=== PATIENT | female | born 1995 | race African-American/Black ===

== ENCOUNTER 2020-03-02 21:22 | Emergency (ER) | payer OTHER ==
[~2020-03-02] VITALS: Ht 160 cm; Wt 82.0 kg
[2020-03-02 21:33] VITALS: BP 111/75
== END 2020-03-02 23:25 | disposition home or self-care (01) ==
LOC: ER 21:22
DX: O26.891 Other specified pregnancy related conditions, first trimester (principal); Z3A.00 Weeks of gestation of pregnancy not specified; Z98.890 Other specified postprocedural states; R07.89 Other chest pain; Z88.1 Allergy status to other antibiotic agents
CPT/HCPCS: 81025; 93005; 99283